=== PATIENT | female | born 1945 | race African-American/Black ===

== ENCOUNTER 2019-08-28 15:52 | Emergency (ER) | payer OTHER ==
[~2019-08-28] VITALS: Ht 170.2 cm; Wt 117.9 kg
[2019-08-28] MEDS ORDERED: diphenhdrAMINE HCL 50 MG/1 ML VL IV ONE (16:15)
[2019-08-28] MEDS ORDERED: methylPREDNISolone SOD SUCC 125 MG/2 ML VL IV ONE (16:15)
[2019-08-28 16:50] LABS: Basophils # (auto) 0 10 ^3/uL (0-0.2); Eosinophils # (auto) 0.1 10 ^3/uL (0-0.8); Hematocrit 33.9 % (36.0-46.0); Hemoglobin 10.6 g/dL (12.2-16.2); Lymphocytes # (auto) 1.3 10 ^3/uL (0.4-5.4); Mean Corpuscular Hgb Conc. 31.4 g/dL (32.0-36.0); Monocytes # (auto) 0.4 10 ^3/uL (0-1.3); Neutrophils # (auto) 2.4 10 ^3/uL (1.6-8.6)
[2019-08-28 16:52] LABS: Basophils % (auto) 0.9 % (0.0-2.0); Eosinophils % (auto) 2.6 % (0.0-7.0); Lymphocytes % (auto) 30.1 % (10.0-50.0); Mean Corpuscular Volume 76.4 fL (80.0-100.0); Neutrophils % (auto) 56.4 % (37.0-80.0); Platelet Count (auto) 252 10^3/uL (140-450); Red Blood Cells 4.44 10^6/uL (4.0-5.20); Red Cell Distribution Width 16.6 % (11.8-14.3); White Blood Cell 4.3 10^3/uL (4.4-10.8)
[2019-08-28 16:56] LABS: Albumin 3.2 g/dL (3.4-5.0); BUN/Creatinine Ratio 21.1; Calcium 8.6 mg/dL (8.5-10.1); Potassium 4.4 mmol/L (3.5-5.1)
[2019-08-28 16:59] LABS: Bilirubin, Total 0.2 mg/dL (0.2-1.0); Total Protein 7.7 g/dL (6.4-8.2)
[2019-08-28 17:31] VITALS: BP 125/58
== END 2019-08-28 18:33 | disposition home or self-care (01) ==
LOC: ER 15:52
DX: T78.40XA Allergy, unspecified, initial encounter (principal); X58.XXXA Exposure to other specified factors, initial encounter
CPT/HCPCS: 36415; 80053; 85025; 96374; 96375; 99284; J1200; J2930